=== PATIENT | male | born 2000 | race Caucasian/White ===

== ENCOUNTER 2022-07-21 22:32 | Emergency (ER) | payer BC, OTHER ==
[~2022-07-21] VITALS: Ht 165.1 cm; Wt 69.9 kg
[~2022-07-21 22:32] MED LIST: ADVAIR; ALBUTEROL; BENADRYL
[2022-07-21] MEDS ORDERED: CORTISPORIN-TC10 M1 RIGHT EAR (23:29)
[2022-07-21 23:35] VITALS: BP 130/76
== END 2022-07-21 23:35 | disposition home or self-care (01) ==
LOC: FSED 22:35
DX: H92.01 Otalgia, right ear (principal); T16.1XXA Foreign body in right ear, initial encounter; J45.909 Unspecified asthma, uncomplicated; K21.9 Gastro-esophageal reflux disease without esophagitis
CPT/HCPCS: 99282

== ENCOUNTER 2022-11-12 00:41 | Emergency (ER) | payer BC, OTHER ==
[~2022-11-12] VITALS: Ht 165.1 cm; Wt 69.9 kg
[~2022-11-12 00:41] MED LIST changes: +CORTISPORIN-TC10 M1 RIGHT EAR
[2022-11-12] MEDS ORDERED: Morphine 4mg INJECTION 4 MG/ML INJ IV ONE (01:00)
[2022-11-12] MEDS ORDERED: ONDANSETRON HCL INJ 2MG/ML 2ML 2 MG/ML VIAL IV STA (01:00)
[2022-11-12] MEDS ORDERED: Morphine 4mg INJECTION 4 MG/ML INJ ONE (01:11)
[2022-11-12 01:15] LABS: BASOPHILS # (AUTO) 0.1 (0.0-0.1); BASOPHILS % 1.2 % (0.0-1.0); EOSINOPHILS # (AUTO) 0.9 (0.0-0.4); EOSINOPHILS % 8.3 % (0.0-6.0); HEMATOCRIT 41.7 % (38.2-49.6); HEMOGLOBIN 14.9 g/dL (14.0-18.0); LYMPHOCYTES # (AUTO) 3.2 (1.0-3.2); LYMPHOCYTES % 29.6 % (18.0-39.1); MEAN CORPUSCULAR HEMOGLOBIN 31.8 pg (28-32); MEAN CORPUSCULAR HGB CONC 35.7 g/dL (31-35); MEAN CORPUSCULAR VOLUME 88.9 fL (81-99); MONOCYTES # (AUTO) 0.7 (0.2-0.8); MONOCYTES % 6.2 % (4.4-11.3); NEUTROPHILS # (AUTO) 5.8 (2.1-6.9); NEUTROPHILS % 54.1 % (38.7-80.0); PLATELET COUNT 396 x10e3/uL (140-360); RED BLOOD COUNT 4.69 x10e6/uL (4.3-5.7); RED CELL DISTRIBUTION WIDTH 13.2 % (11.7-14.4)
[2022-11-12 01:19] LABS: INR 0.91; PROTHROMBIN TIME 12.8 seconds (11.9-14.5)
[2022-11-12 01:20] LABS: PARTIAL THROMBOPLASTIN TIME 29.8 seconds (23.8-35.5)
[2022-11-12 01:26] LABS: ALBUMIN 4.4 g/dL (3.5-5.0); ALBUMIN/GLOBULIN RATIO 1.7 (0.8-2.0); ANION GAP 16.5 mmol/L (8-16); CALCIUM 9.1 mg/dL (8.4-10.2); CREATININE, SERUM 1.02 mg/dL (0.72-1.25); POTASSIUM 3.5 mmol/L (3.5-5.1)
[2022-11-12 01:44] LABS: CLARITY,URINE CLEAR (CLEAR); COLOR,URINE YELLOW (YELLOW); KETONES,URINE NEGATIVE (NEGATIVE); LEUKOCYTE ESTERASE ,URINE NEGATIVE (NEGATIVE); NITRITE,URINE NEGATIVE (NEGATIVE); PROTEIN,URINE DIPSTICK NEGATIVE (NEGATIVE); URINE UROBILINOGEN 0.2 mg/dL (0.2 - 1)
[2022-11-12 01:49] LABS: BACTERIA,URINE FEW /HPF; EPITHELIAL CELLS,URINE RARE /LPF; WBC,URINE (MAN) 0-5 /HPF (0-5)
[2022-11-12] MEDS ORDERED: ACETAMINOPHEN-1 EAC4 PO (03:54)
[2022-11-12] MEDS ORDERED: KETOROLAC TROMETHAMINE 30 MG/ML VIAL IV STA (04:11)
[2022-11-12 04:54] VITALS: BP 129/78; PULSE 79; RESP 17; TEMP 98; O2SAT 99
== END 2022-11-12 04:55 | disposition home or self-care (01) ==
LOC: ER 00:46
DX: N50.812 Left testicular pain (principal); J45.909 Unspecified asthma, uncomplicated; K21.9 Gastro-esophageal reflux disease without esophagitis
CPT/HCPCS: 36415; 76870; 80053; 81001; 85025; 85610; 85730; 93976; 99284; J1885; J2270; J2405

== ENCOUNTER 2022-11-19 05:32 | Emergency (ER) | payer OTHER ==
[~2022-11-19] VITALS: Ht 165.1 cm; Wt 69.9 kg
[~2022-11-19 05:32] MED LIST changes: +ACETAMINOPHEN-1 EAC4 PO
[2022-11-19 05:58] LABS: BASOPHILS # (AUTO) 0.1 (0.0-0.1); BASOPHILS % 0.6 % (0.0-1.0); EOSINOPHILS # (AUTO) 0.2 (0.0-0.4); EOSINOPHILS % 1.4 % (0.0-6.0); HEMATOCRIT 44.3 % (38.2-49.6); HEMOGLOBIN 15.4 g/dL (14.0-18.0); LYMPHOCYTES # (AUTO) 2.1 (1.0-3.2); LYMPHOCYTES % 18.7 % (18.0-39.1); MEAN CORPUSCULAR HEMOGLOBIN 31.5 pg (28-32); MEAN CORPUSCULAR HGB CONC 34.8 g/dL (31-35); MEAN CORPUSCULAR VOLUME 90.6 fL (81-99); MONOCYTES # (AUTO) 0.8 (0.2-0.8); MONOCYTES % 7.3 % (4.4-11.3); NEUTROPHILS # (AUTO) 7.9 (2.1-6.9); NEUTROPHILS % 71.4 % (38.7-80.0); PLATELET COUNT 407 x10e3/uL (140-360); RED BLOOD COUNT 4.89 x10e6/uL (4.3-5.7); RED CELL DISTRIBUTION WIDTH 13.1 % (11.7-14.4)
[2022-11-19 06:20] LABS: ANION GAP 14.9 mmol/L (8-16); CALCIUM 9.3 mg/dL (8.4-10.2); CREATININE, SERUM 1.04 mg/dL (0.72-1.25); POTASSIUM 3.9 mmol/L (3.5-5.1)
[2022-11-19] MEDS ORDERED: KETOROLAC TROMETHAMINE 30 MG/ML VIAL IV STA (06:22)
[2022-11-19 06:25] LABS: CLARITY,URINE CLEAR (CLEAR); COLOR,URINE YELLOW (YELLOW); KETONES,URINE NEGATIVE (NEGATIVE); LEUKOCYTE ESTERASE ,URINE NEGATIVE (NEGATIVE); NITRITE,URINE NEGATIVE (NEGATIVE); PROTEIN,URINE DIPSTICK NEGATIVE (NEGATIVE)
[2022-11-19 06:26] LABS: URINE UROBILINOGEN 0.2 mg/dL (0.2 - 1)
[2022-11-19 06:50] LABS: WBC,URINE (MAN) 0-5 /HPF (0-5)
[2022-11-19 06:52] LABS: BACTERIA,URINE RARE /HPF; EPITHELIAL CELLS,URINE RARE /LPF; RBC,URINE 0-5 /HPF (0-5)
[2022-11-19] MEDS ORDERED: HYDROCODONE/APAP 7.5MG-325MG 1 EA TAB PO ONE (08:45)
[2022-11-19 09:19] VITALS: O2SAT 98
== END 2022-11-19 09:53 | disposition home or self-care (01) ==
LOC: ER 05:41
DX: N50.82 Scrotal pain (principal); I86.1 Scrotal varices; N45.1 Epididymitis; J45.909 Unspecified asthma, uncomplicated; K21.9 Gastro-esophageal reflux disease without esophagitis; F17.210 Nicotine dependence, cigarettes, uncomplicated
CPT/HCPCS: 36415; 76870; 80048; 81001; 85025; 93976; 99284; J1885

== ENCOUNTER 2025-01-19 20:34 | Emergency (ER) | payer BC, OTHER ==
[~2025-01-19] VITALS: Ht 165.1 cm; Wt 72.1 kg
[2025-01-19] MEDS ORDERED: ALBUTEROL/IPRATROPIUM 3 ML NEB NEB ONE (21:15)
[2025-01-19] MEDS: ALBUTEROL/IPRATROPIUM 3 ML NEB NEB ONE (21:20)
[2025-01-19] MEDS: PREDNISONE 20 MG TAB PO SCH (21:25)
[2025-01-19] MEDS ORDERED: PREDNISONE20 MG PO (22:06)
[2025-01-19 22:13] VITALS: PULSE 80; RESP 18; TEMP 97.9
[2025-01-19 22:17] VITALS: BP 152/78; PULSE 89; RESP 21; TEMP 97.9; O2SAT 97
[2025-01-20] MEDS ORDERED: PREDNISONE 20 MG TAB PO SCH (09:00)
== END 2025-01-19 22:20 | disposition home or self-care (01) ==
LOC: FSED 20:57
DX: R06.02 Shortness of breath (principal); J45.909 Unspecified asthma, uncomplicated; K21.9 Gastro-esophageal reflux disease without esophagitis
CPT/HCPCS: 99283; J7512